=== PATIENT | female | born 1980 | race Caucasian/White ===

== ENCOUNTER 2016-11-09 12:32 | Emergency (ER) | payer MEDICAID ==
[~2016-11-09] VITALS: Ht 165.1 cm; Wt 127.7 kg
[2016-11-09] MEDS ORDERED: SULF1TAB24 PO (13:52)
[2016-11-09 14:01] VITALS: BP 178/113
== END 2016-11-09 14:20 | disposition left against medical advice (07) ==
LOC: ED 14:14
DX: R05 Cough (principal); J45.909 Unspecified asthma, uncomplicated
CPT/HCPCS: 99281